=== PATIENT | female | born 1980 | race Two or more races ===

== ENCOUNTER 2017-04-13 13:25 | Emergency (ER) | payer BC, OTHER ==
--- NOTE | 2017-04-13 14:25 | EDM.PDOC ---
ED HPI GENERAL MEDICAL PROBLEM - General Chief Complaint: Lower Extremity Injury/Pain Stated Complaint: R LEG SWOLLEN Time Seen by Provider: 04/13/17 14:09 Source of Information: Reports: Patient History Limitations: Reports: No Limitations - History of Present Illness INITIAL COMMENTS - FREE TEXT/NARRATIVE: HISTORY AND PHYSICAL: History of present illness: Patient is a 36-year-old female who presents to the emergency room with complaints of right knee pain. She states he was on a flight on April 11, 2017 when it had to make an emergency landing. The emergency exit was used, the inflatable slides were used to exit the plane. The patient reports that while exiting the plane multiple people were coming out on the inflatable and feels like she injured her right knee. Since that time she has been ambulatory but has pain with weightbearing. She has been using some anti-inflammatory pain medications from [facility]. No previous trauma or injury to the affected extremity. Review of systems: As per history of present illness and below otherwise all systems reviewed and negative. Past medical history: As per history of present illness and as reviewed below otherwise noncontributory. Surgical history: As per history of present illness and as reviewed below otherwise noncontributory. Social history: No reported history of drug or alcohol abuse. Family history: As per history of present illness and as reviewed below otherwise noncontributory. Physical exam: General: Well-developed and well-nourished 36-year-old female. Alert and oriented. Nontoxic appearing and in no acute distress. HEENT: Atraumatic, normocephalic, pupils reactive, negative for conjunctival pallor or scleral icterus, mucous membranes moist, throat clear, neck supple, nontender, trachea midline. Lungs: Clear to auscultation, breath sounds equal bilaterally, chest nontender. Heart: S1S2, regular, negative for clicks, rubs, or JVD. Abdomen: Soft, nondistended, nontender. Negative for masses or hepatosplenomegaly. Negative for costovertebral tenderness. Pelvis: Stable nontender. Genitourinary: Deferred. Rectal: Deferred. Extremities: Moves all extremities per self, mild tenderness to the anterior right knee, strong pedal pulse, + CMS. No knee instability noted. She is negative for cords or calf pain. Neurovascular unremarkable. Palpated the pelvis , femur, tib-fib, ankle and foot without any pain or tenderness. C-spine and back were palpated without any pinpoint vertebral tenderness, crepitus, step- offs or obvious deformities. He denies any numbness or tingling to the upper or lower extremities. Neuro: Awake, alert, oriented. Cranial nerves II through XII unremarkable. Cerebellum unremarkable. Motor and sensory unremarkable throughout. Exam nonfocal. X-ray shows no acute fractures, dislocations. Mild soft tissue swelling noted. Will provide an Nestor wrap. Encouraged her to follow up with primary care provider for further evaluation if she continues to have pain. Patient states she has been taking multiple NSAIDs does have some GI upset with taking these medications. We'll give a limited amount of tramadol for nighttime use. Encouraged her to stop all of the other anti-inflammatories. May use Tylenol as needed. She voiced understanding and is agreeable to plan of care. She denies any further questions at this time. Diagnostics: Xray right knee Therapeutics: Nestor wrap Impression: Contusion Right knee pain Plan: 1. X-rays show no fractures, dislocations or abnormalities. Rest, ice, elevate the affected extremity as needed. Please stop taking the over the counter medications you've been using for pain. Tramadol has been prescribed for you. This medication may cause drowsiness so do not take it while driving or needing to be functioning outside of the house. I would like you to reserve this medication for evening/nighttime use. Otherwise Tylenol as needed over-the- counter. 2. Nestor wrap has been provided for you for knee compression. 3. Please follow up with her primary care provider or orthopedic doctor in the next several days. Return to the ED as needed and as discussed. Definitive disposition and diagnosis as appropriate pending reevaluation and review of above. Duration: Day(s): Location: Reports: Lower Extremity, Right Right Knee/Coccyx Pain Score (Numeric/FACES): 6 - Related Data Allergies Allergy/AdvReac Type Severity Reaction Status Date / Time No Known Allergies Allergy Verified 04/13/17 13:58 Home Meds: Home Meds . [No Known Home Meds] 04/13/17 [History] Review of Systems - Review of Systems Review Of Systems: ROS reveals no pertinent complaints other than HPI. ED EXAM, GENERAL - Physical Exam Exam: See Below (See dictation) Course - Vital Signs Last Recorded V/S: Last Vital Signs Temp 98.0 F 04/13/17 14:40 Pulse 70 04/13/17 14:40 Resp 18 04/13/17 14:40 BP 138/101 H 04/13/17 14:40 Pulse Ox 100 04/13/17 14:40 Departure - Departure Time of Disposition: 15:34 Disposition: Home, Self-Care 01 Clinical Impression: Contusion Qualifiers: Encounter type: initial encounter Contusion area: lower leg Laterality: right Qualified Code(s): S80.11XA - Contusion of right lower leg, initial encounter Knee pain, right Qualifiers: Chronicity: acute Qualified Code(s): M25.561 - Pain in right knee - Discharge Information Referrals: PCP,None [Primary Care Provider] - Forms: ED Department Discharge Additional Instructions: My general discharge The following information is given to patients seen in the emergency department who are being discharged to home. This information is to outline your options for follow-up care. We provide all patients seen in our emergency department with a follow-up referral. The need for follow-up, as well as the timing and circumstances, are variable depending upon the specifics of your emergency department visit. If you don't have a primary care physician on staff, we will provide you with a referral. We always advise you to contact your personal physician following an emergency department visit to inform them of the circumstance of the visit and for follow-up with them and/or the need for any referrals to a consulting specialist. The emergency department will also refer you to a specialist when appropriate. This referral assures that you have the opportunity for follow-up care with a specialist. All of these measure are taken in an effort to provide you with optimal care, which includes your follow-up. Under all circumstances we always encourage you to contact your private physician who remains a resource for coordinating your care. When calling for follow-up care, please make the office aware that this follow-up is from your recent emergency room visit. If for any reason you are refused follow-up, please contact the [facility] Emergency Department at and asked to speak to the emergency department charge nurse. [facility] [address] [place] [id number] 1. X-rays show no fractures, dislocations or abnormalities. Rest, ice, elevate the affected extremity as needed. Please stop taking the over the counter medications you've been using for pain. Tramadol has been prescribed for you. This medication may cause drowsiness so do not take it while driving or needing to be functioning outside of the house. I would like you to reserve this medication for evening/nighttime use. Otherwise Tylenol as needed over-the- counter. 2. Nestor wrap has been provided for you for knee compression. 3. Please follow up with her primary care provider or orthopedic doctor in the next several days. Return to the ED as needed and as discussed.
--- NOTE | 2017-04-13 15:21 | CR ---
EXAMINATION: Right knee HISTORY: Pain COMPARISON: None TECHNIQUE: 3 views FINDINGS/IMPRESSION: There is no acute osseous abnormality, dislocation, or fracture. Bone mineraliza tion and joint spaces appear normal. Minimal adjacent soft tissue edema without an underlying joint e ffusion.
== END 2017-04-13 15:56 | disposition home or self-care (01) ==
LOC: MW.ED 13:25
DX: S80.11XA Contusion of right lower leg, initial encounter (principal); X58.XXXA Exposure to other specified factors, initial encounter
CPT/HCPCS: 73562-26-RT; 73562-RT; 99283